=== PATIENT | male | born 1980 | race Hispanic/Latino ===

== ENCOUNTER 2019-09-09 15:54 | Emergency (ER) | payer OTHER ==
[2019-09-09] MEDS ORDERED: FLEXERIL PO (16:54)
[2019-09-09 17:05] VITALS: BP 121/74
== END 2019-09-09 17:05 | disposition home or self-care (01) | DRG 552 ==
LOC: ED 15:54
DX: S16.1XXA Strain of muscle, fascia and tendon at neck level, initial encounter (principal); S46.912A Strain of unspecified muscle, fascia and tendon at shoulder and upper arm level, left arm, initial encounter; V49.40XA Driver injured in collision with unspecified motor vehicles in traffic accident, initial encounter